=== PATIENT | female | born 1955 | race Caucasian/White ===

== ENCOUNTER → 2019-07-01 | Outpatient (CLI) | payer MEDICARE, OTHER ==
[~2019-07-01] VITALS: Ht 160 cm; Wt 118.1 kg
[2019-07-01] VITALS (8 sets, daily range): BP systolic 108–136; BP diastolic 32–66
[~2019-07-01] MED LIST: ACCUNEB SO1.25 MG/1 INH; ANORO ELLIPTA1 EACH INH; ELIQUIS2.5 MG PO; FLECAINIDE ACET50 M1 PO; GEMFIBROZIL 60600 MG PO; GINKGO BILOBA120 M1 PO; KRILL OIL500 MG PO; LANSOPRAZOLE15 MG PO; LOPID600 MG PO; MAXZIDE-25 MG1 EACH PO; NEURONTIN600 MG PO; TRIAMTERENE-HC1 EAC2 PO; TURMERIC500 M2 PO; TYLENOL EXTRA500 MG PO
== END | disposition home or self-care (01) ==
LOC: M.CL 08:04
DX: I48.0 Paroxysmal atrial fibrillation (principal); I08.1 Rheumatic disorders of both mitral and tricuspid valves; J44.9 Chronic obstructive pulmonary disease, unspecified; G89.29 Other chronic pain; I10 Essential (primary) hypertension; E78.5 Hyperlipidemia, unspecified; Z90.49 Acquired absence of other specified parts of digestive tract; Z79.01 Long term (current) use of anticoagulants; Z98.890 Other specified postprocedural states; Z79.899 Other long term (current) drug therapy; Z99.81 Dependence on supplemental oxygen; Z87.891 Personal history of nicotine dependence